=== PATIENT | male | born 1995 | race Caucasian/White ===

== ENCOUNTER 2017-04-28 13:18 | Emergency (ER) | payer BC, OTHER ==
[2017-04-28 13:38] VITALS: BP 137/87
[2017-04-28] MEDS ORDERED: Lidocaine 2% PF * 5 ML VIAL INJ ONE (13:56)
--- NOTE | 2017-04-29 08:09 | UC ---
Laceration HPI - HPI Summary HPI Summary: pt cut his left thumb this morning while opening a package with a brand new knife. - History Of Current Complaint Chief Complaint: UCLaceration Stated Complaint: LFT THUMB LAC Time Seen by Provider: 04/28/17 13:27 Hx Obtained From: Patient Laceration Location: Finger Mechanism Of Injury: Sharp Trauma Severity: Mild Pain Intensity: 2 Pain Scale Used: 0-10 Numeric Aggravating Factors: Movement Related History: Dominant Hand Right - Allergies/Home Medications Allergies/Adverse Reactions: Allergies Allergy/AdvReac Type Severity Reaction Status Date / Time Morphine Allergy Anaphylatic Verified 04/28/17 13:39 Shock Home Medications: Home Medications NK [No Home Medications Reported] 04/28/17 [History Confirmed 04/28/17] PMH/Surg Hx/FS Hx/Imm Hx Previously Healthy: Yes - Surgical History Surgical History: Yes Surgery Procedure, Year, and Place: PNEUMO SX - Family History Known Family History: Negative: Cardiac Disease, Hypertension, Diabetes - Social History Lives: With Family Alcohol Use: Weekly Substance Use Type: None Smoking Status (MU): Never Smoked Tobacco Type: Smokeless Tobacco Amount Used/How Often: 1 CAN EVERY 2 DAYS Length of Time of Smoking/Using Tobacco: 5 YRS Cessation Counseling: Patient Advised to Stop Review of Systems Constitutional: Negative Skin: Other - hpi ENT: Negative Respiratory: Negative Cardiovascular: Negative Gastrointestinal: Negative Musculoskeletal: Negative Neurological: Negative All Other Systems Reviewed And Are Negative: Yes Physical Exam Triage Information Reviewed: Yes Appearance: Well-Appearing, No Pain Distress, Well-Nourished Vital Signs: Initial Vital Signs Temp 98.5 F 04/28/17 13:30 Pulse 85 04/28/17 13:30 Resp 16 04/28/17 13:30 BP 137/87 04/28/17 13:30 Pulse Ox 100 04/28/17 13:30 Vital Signs Reviewed: Yes Eyes: Positive: Conjunctiva Clear. Negative: Discharge ENT: Positive: Hearing grossly normal. Negative: Muffled voice, Hoarse voice Neck: Positive: Supple Respiratory: Positive: Lungs clear, Normal breath sounds, No respiratory distress, No accessory muscle use Cardiovascular: Positive: RRR, No Murmur Musculoskeletal Exam: Normal Musculoskeletal: Positive: Other: - good strength in tendens Psychological Exam: Normal Skin: Positive: Other - <1,5cm lac on left thumb Laceration Repair - Laceration Repair 1 Description: Linear - flap Laceration Size After Repair: Length (cm) - 1.5 Modified For Repair: No Anesthesia Used: 1.0% Lido Cleansing Completed Via Routine Prep: Yes Irrigation With Pressure Irrigation Device: Yes Closure Material: Sutures Closure Method: Single Layer Suture Of: Skin Suture Type: Nylon Laceration Course/Dx - Differential Dx - Laceration/Wound Provider Diagnoses: thumb lac Discharge - Discharge Plan Condition: Stable Disposition: HOME Patient Education Materials: Care For Your Stitches (ED), Laceration (ED) Referrals: Abner Hernandez MD [Medical Doctor] - If Needed Additional Instructions: RETURN HERE FOR SUTURE REMOVAL IN 10-12 DAYS.
== END 2017-04-28 14:43 | disposition home or self-care (01) ==
LOC: UCCORT 13:18
DX: S61.012A Laceration without foreign body of left thumb without damage to nail, initial encounter (principal); W26.0XXA Contact with knife, initial encounter; Y93.89 Activity, other specified; Y92.9 Unspecified place or not applicable; Z88.5 Allergy status to narcotic agent; F17.220 Nicotine dependence, chewing tobacco, uncomplicated
CPT/HCPCS: 12001; 12002; 99201; G0463

== ENCOUNTER 2017-05-12 13:11 | Emergency (ER) | payer OTHER ==
--- NOTE | 2017-05-12 13:32 | UC ---
HPI Wound/Suture Re-check - History Of Current Complaint Stated Complaint: SUTURE REMOVAL Time Seen by Provider: 05/12/17 13:32 - Allergies/Home Medications Allergies/Adverse Reactions: Allergies Allergy/AdvReac Type Severity Reaction Status Date / Time Morphine Allergy Anaphylatic Verified 04/28/17 13:39 Shock PMH/Surg Hx/FS Hx/Imm Hx - Surgical History Surgical History: Yes Surgery Procedure, Year, and Place: PNEUMO SX - Family History Known Family History: Negative: Cardiac Disease, Hypertension, Diabetes - Social History Alcohol Use: Weekly Substance Use Type: None Smoking Status (MU): Never Smoked Tobacco Type: Smokeless Tobacco Amount Used/How Often: 1 CAN EVERY 2 DAYS Length of Time of Smoking/Using Tobacco: 5 YRS Discharge - Discharge Plan Condition: Stable Disposition: HOME Referrals: bAner Hernandez MD [Primary Care Provider] -
[2017-05-12 13:40] VITALS: BP 122/80
--- NOTE | 2017-05-12 13:47 | UC ---
HPI Wound/Suture Re-check - HPI Summary HPI Summary: Pt is here for suture removal to left thumb. Pt hand sutures placed at [facility] on 04/28/17. Pt denies, tenderness, fever, chills, erythema, or discharge from wound. - History Of Current Complaint Chief Complaint: AYDEkin Stated Complaint: SUTURE REMOVAL Time Seen by Provider: 05/12/17 13:32 Hx Obtained From: Patient Onset/Duration: Sudden Onset Severity: Mild - Allergies/Home Medications Allergies/Adverse Reactions: Allergies Allergy/AdvReac Type Severity Reaction Status Date / Time Morphine Allergy Anaphylatic Verified 05/12/17 13:39 Shock PMH/Surg Hx/FS Hx/Imm Hx Previously Healthy: Yes - Surgical History Surgical History: Yes Surgery Procedure, Year, and Place: PNEUMO SX - Family History Known Family History: Negative: Cardiac Disease, Hypertension, Diabetes - Social History Occupation: Employed Full-time Lives: With Family Alcohol Use: Weekly Substance Use Type: None Smoking Status (MU): Never Smoked Tobacco Type: Smokeless Tobacco Amount Used/How Often: 1 CAN EVERY 2 DAYS Length of Time of Smoking/Using Tobacco: 5 YRS Have You Smoked in the Last Year: No - Immunization History Most Recent Tetanus Shot: up to date Vaccination Up to Date: Yes Review of Systems Constitutional: Negative Skin: Other - sutures intact left thumb Eyes: Negative ENT: Negative Respiratory: Negative Cardiovascular: Negative Gastrointestinal: Negative Genitourinary: Negative Motor: Negative Neurovascular: Negative Musculoskeletal: Negative Neurological: Negative Psychological: Negative Is Patient Immunocompromised?: No All Other Systems Reviewed And Are Negative: Yes Physical Exam Triage Information Reviewed: Yes Appearance: Well-Appearing Vital Signs: Initial Vital Signs Temp 100.2 F 05/12/17 13:35 Pulse 77 05/12/17 13:35 Resp 18 05/12/17 13:35 BP 122/80 05/12/17 13:35 Pulse Ox 99 05/12/17 13:35 Vital Signs Reviewed: Yes Eye Exam: Normal ENT Exam: Normal Dental Exam: Normal Neck exam: Normal Respiratory Exam: Normal Musculoskeletal Exam: Normal Neurological Exam: Normal Psychological Exam: Normal Skin Exam: Other - 6 sutures intact, no erythema, discharge, edges of wound well approximated. Course/Dx - Differential Dx - Laceration/Wound Differential Diagnoses: Healing Wound, Suture Removal Provider Diagnoses: healing wound,. suture removal- 6 sutures, intact Discharge - Discharge Plan Condition: Stable Disposition: HOME Patient Education Materials: Stitches Removal (ED) Referrals: Abner Hernandez MD [Primary Care Provider] - If Needed
== END 2017-05-12 13:52 | disposition home or self-care (01) ==
LOC: UCCORT 13:11
DX: S61.012D Laceration without foreign body of left thumb without damage to nail, subsequent encounter (principal); W45.8XXD Other foreign body or object entering through skin, subsequent encounter; Z88.5 Allergy status to narcotic agent; F17.220 Nicotine dependence, chewing tobacco, uncomplicated

== ENCOUNTER 2017-11-20 15:38 | Emergency (ER) | payer OTHER ==
--- NOTE | 2017-11-20 16:12 | UC ---
Skin Complaint HPI - HPI Summary HPI Summary: 22 yo male presents with lip injury. He tells me that he was at work earlier today and a piece of metal punctured his lower lip. He is unsure the date of his last tetanus. Cleansed the area and applied a band-aid. - History of Current Complaint Time Seen by Provider: 11/20/17 16:12 Stated Complaint: WC-FACIAL COMPLAINT Hx Obtained From: Patient Onset/Duration: Sudden Onset Skin Exposure Onset/Duration: Hours Ago Onset Severity: Mild Current Severity: Mild Pain Intensity: 1 Pain Scale Used: 0-10 Numeric - Allergy/Home Medications Allergies/Adverse Reactions: Allergies Allergy/AdvReac Type Severity Reaction Status Date / Time morphine Allergy Anaphylatic Verified 11/20/17 16:15 Shock Home Medications: Home Medications Naproxen Sodium [Aleve] 220 mg PO DAILY 11/20/17 [History Confirmed 11/20/17] Review of Systems Constitutional: Negative Skin: Other - Lip puncture wound Respiratory: Negative Cardiovascular: Negative Neurovascular: Negative Neurological: Negative Psychological: Negative All Other Systems Reviewed And Are Negative: Yes PMH/Surg Hx/FS Hx/Imm Hx - Additional Past Medical History Additional PMH: None Previously Healthy: Yes - Surgical History Surgical History: Yes Surgery Procedure, Year, and Place: PNEUMO SX - Family History Known Family History: Negative: Cardiac Disease, Hypertension, Diabetes - Social History Occupation: Employed Full-time Lives: With Family Alcohol Use: Weekly Substance Use Type: None Smoking Status (MU): Never Smoked Tobacco Type: Smokeless Tobacco Amount Used/How Often: 1 CAN EVERY 2 DAYS Length of Time of Smoking/Using Tobacco: 5 YRS Have You Smoked in the Last Year: No - Immunization History Most Recent Tetanus Shot: up to date Vaccination Up to Date: Yes Physical Exam - Summary Physical Exam Summary: GENERAL: NAD. WDWN. No pain distress. SKIN: Lower lip: 2mm superficial puncture wound just below lower lip. No streaking, bleeding, or drainage. NECK: Supple. Nontender. No lymphadenopathy. CHEST: No accessory muscle use. Breathing comfortably and in no distress. CV: Pulses intact NEURO: Alert. CN II-XII grossly intact. PSYCH: Age appropriate behavior. Triage Information Reviewed: Yes Vital Signs: Vital Signs: Temp Pulse Resp BP Pulse Ox 99.1 F 62 16 140/83 99 11/20/17 16:09 11/20/17 16:09 07/19/18 16:09 11/20/17 16:09 11/20/17 16:09 Vital Signs Reviewed: Yes Dental: Positive: Dental Fracture @ - Tooth 24 Course/Dx - Course Course Of Treatment: Puncture wound. tdap updated today. Keep area clean and covered with band-aid. See dentist about new chipped tooth due to incident today. - Diagnoses Provider Diagnoses: Puncture wound lower lip Discharge - Sign-Out/Discharge Documenting (check all that apply): Patient Departure - Discharge Plan Condition: Stable Disposition: HOME Patient Education Materials: Facial Laceration (ED) Referrals: No Primary Care Phys,NOPCP [Primary Care Provider] - Additional Instructions: If you develop a fever, shortness of breath, chest pain, new or worsening symptoms - please call your PCP or go to the ED. Your blood pressure was high at todays visit. Please see your primary provider within 4 weeks for recheck and re-evaluation . Per institutional requirements, I have reviewed the chart, however, I was not consulted specifically or made aware of this patient by the above midlevel provider. I did not personally evaluate, interact with , or disposition this patient. - Billing Disposition and Condition Condition: STABLE Disposition: Home
[2017-11-20 16:14] VITALS: BP 140/83
[2017-11-20] MEDS ORDERED: Tetan/Diph/Pertus SYR(Tdap)* 0.5 ML SYR(BOOSTRIX) use SYR IM ONE (16:17)
== END 2017-11-20 16:40 | disposition home or self-care (01) ==
LOC: UCCORT 15:38
DX: S01.531A Puncture wound without foreign body of lip, initial encounter (principal); W22.8XXA Striking against or struck by other objects, initial encounter; Y93.9 Activity, unspecified; Y99.9 Unspecified external cause status
CPT/HCPCS: 90471; 90715; 99211; G0463